=== PATIENT | female | born 1945 | race Caucasian/White ===

== ENCOUNTER 2016-09-18 09:24 | Inpatient (IN) | payer OTHER ==
[~2016-09-18] VITALS: Ht 162.6 cm; Wt 68.9 kg
[2016-09-18 09:25] VITALS: BP 230/87; PULSE 59; RESP 18; O2SAT 97
--- NOTE | 2016-09-18 09:25 | NUR ---
Placed in room 4 . Placed on rn cardiac, blood pressure machine and pulse oximeter. To gown for exam. Side rails up. Report given to NIKA NEWELL
--- NOTE | 2016-09-18 09:30 | NUR ---
ER at bedside examining patient.
--- NOTE | 2016-09-18 09:35 | NUR ---
Medication reconciliation completed with information provided by PT. Any prior medication reconciliation on file was reviewed and corrected.
--- NOTE | 2016-09-18 09:35 | NUR ---
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 right side facial sensory less than the left side. no drift. no acute distress noted. NIH score 1 completed by me.
--- NOTE | 2016-09-18 09:35 | NUR ---
Placed on air sampling and monitoring, blood pressure machine and pulse oximeter. To gown for exam. Side rails up.
[2016-09-18] MEDS ORDERED: FENO48TA2 PO (09:44)
[2016-09-18] MEDS ORDERED: GLU500 PO (09:44)
[2016-09-18] MEDS ORDERED: ATEN-166 PO (09:46)
[2016-09-18] MEDS ORDERED: LOSA1TAB36 PO (09:46)
[2016-09-18] MEDS ORDERED: PRO20 PO (09:46)
[2016-09-18] MEDS ORDERED: ASPI-859 PO (09:47)
--- NOTE | 2016-09-18 10:00 | NUR ---
# 20 gauge angiocath placed to LFA. Use of asceptic technique. Opsite placed over site. Blood return noted. Blood for lab drawn from site. Flushed with 10 cc of normal saline. No evidence of infiltration noted. Patient tolerated well.
[2016-09-18 10:17] LABS: ANION GAP 5 (5-15); CHLORIDE 106 mmol/L (98-107); CREATININE 0.79 mg/dL (0.55-1.30); GLUCOSE 104 mg/dL (70-99); POTASSIUM 3.8 mmol/L (3.5-5.1); SODIUM SERUM 137 mmol/L (136-145); UREA NITROGEN, BLOOD 22 mg/dL (8-21)
[2016-09-18 10:20] LABS: INR 1.1 (0.8-1.2); PROTHROMBIN TIME 11.5 SECS (9.5-12.5)
[2016-09-18 10:25] LABS: BASOPHILS % (AUTO) 0.4 % (0.0-2.0); EOSINOPHILS # (AUTO) 0.2 K/uL (0.0-0.4); EOSINOPHILS % (AUTO) 2.8 % (0.0-4.0); HEMATOCRIT 37.5 % (36-48); HEMOGLOBIN 12.5 g/dL (12.0-16.0); LYMPHOCYTES % (AUTO) 24.9 % (20.5-51.5); MEAN CORPUSCULAR HEMOGLOBIN 28 pg (27-31); MEAN CORPUSCULAR HGB CONC 33 % (32-36); MEAN CORPUSCULAR VOLUME 84 fL (79.0-98.0); MONOCYTES # (AUTO) 0.5 K/uL (0.0-1.0); MONOCYTES % (AUTO) 6.7 % (1.7-9.3); NEUTROPHILS # (AUTO) 5.3 K/uL (1.8-7.7); NEUTROPHILS % (AUTO) 65.2 % (40.0-70.0); PLATELET COUNT (AUTO) 374 K/uL (130-430); RED BLOOD CELL COUNT(AUTO) 4.45 MIL/uL (4.2-6.2); RED CELL DISTRIBUTION WIDTH 13.3 % (9.0-15.0)
[2016-09-18 10:34] LABS: ALANINE AMINOTRANSFERASE 17 U/L (12-78); ALBUMIN 3.9 g/dL (3.4-4.8); ASPARTATE AMINOTRANSFERASE 23 U/L (10-37); FREE T4 (FREE THYROXINE) 0.8 ng/dL (0.6-1.6); TOTAL BILIRUBIN 0.3 mg/dL (0.0-1.0); TOTAL PROTEIN, SERUM 7.4 g/dL (6.4-8.3)
[2016-09-18 10:35] LABS: ALCOHOL, BLOOD < 3 mg/dL (<10)
[2016-09-18] MEDS ORDERED: ASPIRIN 81 MG TAB.CHEW PO ONE (11:15)
--- NOTE | 2016-09-18 11:45 | NUR ---
Patient will be admitted to care of [facility]. Admitted to TELE unit. Will go to room 102 A . Belongings list completed. Summary report printed. Report will be given at bedside.
[2016-09-18] MEDS ORDERED: NON-FORMULARY MEDICATION (Losartan/Hctz* (Losartan-Hctz 100-12.5 Mg Tab*) 1 EACH) PO SCH (12:15)
[2016-09-18 12:17] VITALS: BP 191/77; PULSE 58; RESP 16; TEMP 96.9; O2SAT 94
--- NOTE | 2016-09-18 12:17 | NUR ---
Admission Note Received patient from ER with diagnosis of TIA, Uncontrolled HTN. Patient seen by Dr. Oquendo. Initial Plan of Care discussed-patient verbalized understanding. Patient's at bedside. Oriented to room, call light, pain management and safety.
[2016-09-18 12:35] VITALS: BP 191/77; PULSE 58; RESP 16; TEMP 96.9; O2SAT 94
--- NOTE | 2016-09-18 12:58 | NUR ---
RN ROUNDS PATIENT RECEIVED, AWAKE, ALERT AND ORIENTED X4, DENIES PAIN, EDUCATED PRODUCTION GENERALIST LIGHT SYSTEM AND TO CALL FOR ANY ASSISTANCE, PATIENT VERBALIZED UNDERSTANDING, ASSESSMENT COMPLETE, EDUCATED ON MEDICATIONS AND POTENTIAL SIDE EFFECTS, PATIENT VERBALIZED UNDERSTANDING AND TOLERATED WELL, NO OTHER NEEDS AT THIS TIME, BED IN LOWEST POSITION, THREE SIDE RAILS UP, BED ALARM ON, CALL LIGHT IN THE PATIENT'S HAND, FALL AND ASPIRATION PRECAUTIONS IN PLACE.
[2016-09-18] MEDS ORDERED: HYDROCHLOROTHIAZIDE 12.5 MG CAPSULE (HCTZ) PO ONE (13:00)
[2016-09-18] MEDS ORDERED: LOSARTAN POTASSIUM 50 MG TABLET (COZAAR) PO ONE (13:00)
--- NOTE | 2016-09-18 14:44 | NUR ---
RN ROUNDS PATIENT RESTING IN BED, EYES CLOSED, BREATHING IS EVEN AND UNLABORED, NO SIGNS OF DISTRESS, BED IN LOWEST POSITION, THREE SIDE RAILS UP, BED ALARM ON, FALL PRECAUTIONS IN PLACE, CALL LIGHT NEXT TO THE PATIENT'S HAND.
--- NOTE | 2016-09-18 15:36 | NUR ---
HEART RATE NOTIFIED BY [place] THAT PATIENT HEART RATE IS BETWEEN 47-50, PATIENT HAS EYES CLOSED, BREATHING IS EVEN AND UNLABORED, EASILY AROUSED, PATIENT STATES THAT SHE IS JUST TIRED, NO SIGNS OF DISTRESS, BED IN LOWEST POSITION, THREE SIDE RAILS UP, BED ALARM ON, CALL LIGHT NEXT TO THE PATIENT'S HAND, WILL CONTINUE TO MONITOR.
--- NOTE | 2016-09-18 16:19 | NUR ---
RN ROUNDS PATIENT RESTING IN BED, AWAKE, DENIES PAIN, NO DISTRESS, TALKING WITH FAMILY AT THE BEDSIDE, NO OTHER NEEDS AT THIS TIME, BED IN LOWEST POSITION, THREE SIDE RAILS UP, BED ALARM ON, CALL LIGHT IN THE PATIENT'S HAND, FALL PRECAUTIONS IN PLACE.
[2016-09-18 16:24] VITALS: BP 170/72; PULSE 72; RESP 16; TEMP 98.5; O2SAT 100
--- NOTE | 2016-09-18 16:24 | NUR ---
HIGH BLOOD PRESSURE VITAL SIGNS TAKEN, BLOOD PRESSURE 170/72 HEART RATE 72, PAGED DR WATERMAN FOR ORDERS, PATIENT HAS NO SIGNS OF DISTRESS AT THIS TIME, WILL CONTINUE TO MONITOR.
[2016-09-18] MEDS ORDERED: amLODIPine BESYLATE 5 MG TABLET PO ONE (16:45)
--- NOTE | 2016-09-18 16:47 | NUR ---
DR WATERMAN CALL BACK ORDERED FOR AMLODIPINE 2.5MG PO X1 NOW, WILL FOLLOW UP.
[2016-09-18] MEDS ORDERED: ACETAMINOPHEN 325 MG TABLET PO PRN (17:00)
[2016-09-18] MEDS ORDERED: ZOLPIDEM TARTRATE 5 MG TABLET PO PRN (17:00)
--- NOTE | 2016-09-18 17:01 | NUR ---
RN ROUNDS PATIENT RESTING IN BED, NO DISTRESS, EDUCATED THE PATIENT ON BLOOD PRESSURE MEDICATION AND POTENTIAL SIDE EFFECTS, PATIENT VERBALIZED UNDERSTANDING AND TOLERATED WELL, WILL REASSESS BLOOD PRESSURE, WILL CONTINUE TO MONITOR, BED IN LOWEST POSITION, TWO SIDE RAILS UP, BED ALARM ON, BED CLOSE TO NURSE'S STATION, CALL LIGHT IN THE PATIENT'S HAND, FALL PRECAUTIONS IN PLACE.
--- NOTE | 2016-09-18 17:06 | NUR ---
ATTEMPT TO CALL [facility]TR[facility] REGARDING ORDER FOR US CAROTID BILATERAL, NO ANSWER NO VOICEMAIL AVAILABLE, WILL ATTEMPT AGAIN.
[2016-09-18] MEDS ORDERED: FAMOTIDINE 20 MG TABLET PO ONE (17:15)
--- NOTE | 2016-09-18 17:16 | NUR ---
SPOKE WITH SO GARVIN HEAD TRACK COACH STATED THAT SHE IS AWARE OF THE ORDER AND THAT WANDA VANN WILL BE IN TO DO THE CAROTID BILATERAL US TODAY.
--- NOTE | 2016-09-18 17:27 | NUR ---
DR SEGURA HERE TO SEE THE PATIENT, WILL FOLLOW UP WITH ANY NEW ORDERS.
[2016-09-18] MEDS: metFORMIN HCL 500 MG TABLET PO SCH (17:41)
--- NOTE | 2016-09-18 17:44 | NUR ---
RN ROUNDS PATIENT RESTING IN BED, AWAKE, DENIES PAIN, EDUCATED THE PATIENT ON MEDICATIONS AND POTENTIAL SIDE EFFECTS, PATIENT VERBALIZED UNDERSTANDING AND TOLERATED WELL, NO OTHER NEEDS AT THIS TIME, BED IN LOWEST POSITION, TWO SIDE RAILS UP, BED ALARM ON, FALL PRECAUTIONS IN PLACE, FAMILY AT THE BEDSIDE, WILL CONTINUE TO MONITOR.
--- NOTE | 2016-09-18 18:18 | NUR ---
CLOSING NOTES PATIENT SITTING AT BEDSIDE EATING DINNER, DENIES PAIN, PATIENT WOULD LIKE BLOOD PRESSURE REASSESSED AFTER SHE EATS AND AFTER SHE HAS TIME TO RELAX, WILL FOLLOW UP OR ENDORSE TO [facility] SHIFT NURSE, ALL NEEDS MET, NO OTHER NEEDS AT THIS TIME, BED IN LOWEST POSITION, TWO SIDE RAILS UP, BED ALARM ON, FALL AND ASPIRATION PRECAUTIONS IN PLACE, CALL LIGHT NEXT TO THE PATIENT'S HAND, WILL ENDORSE REPORT TO NOC SHIFT NURSE.
--- NOTE | 2016-09-18 19:26 | NUR ---
Initial PM Note Pt was received lying in bed fully awake, alert and oriented x3. No c/o pain or discomfort at this time. Speech is clear and pt is able to make her needs known. Skin is warm and dry to touch. No signs or symptoms of hypoglycemia or hyperglycemia noted. monitor and storage bin tender is showing SR. Fall precautions are in place. Pt was instructed to call for assistance as needed and pt verbalized understanding. Call light is with pt and bed alarm is on. Three side rails are up. Bed is in the lowest and locked positions. Saline lock is intact in LFA without any signs of infiltration. Will continue to monitor pt.
[2016-09-18 19:47] LABS: BILIRUBIN,URINE NEGATIVE (NEGATIVE); BLOOD, URINE NEGATIVE (NEGATIVE); CLARITY/URINE CLEAR (CLEAR); COLOR,URINE YELLOW (YELLOW); GLUCOSE,URINE NEGATIVE (NEGATIVE); KETONES,URINE NEGATIVE (NEGATIVE); LEUKOCYTE ESTERASE ,URINE 2+ (NEGATIVE); NITRITE, URINE NEGATIVE (NEGATIVE); PH,URINE 6.5 (5.0-8.0); PROTEIN URINE NEGATIVE (NEGATIVE); UROBILINOGEN,URINE 0.2 (0.2-1.0)
[2016-09-18 20:00] VITALS: BP 143/65; PULSE 51; RESP 18; TEMP 97.8; O2SAT 96
[2016-09-18 20:16] LABS: BACTERIA,URINE FEW /HPF (None Seen); MUCUS,URINE 1+ /LPF (None Seen); RBC,URINE 0-3 /HPF (0-3)
[2016-09-18 20:18] LABS: BARBITURATE, URINE NEGATIVE (NEG <=200); BENZODIAZEPINE, URINE NEGATIVE (NEG <=150); CANNABINOID, URINE NEGATIVE (NEG <=50); COCAINE, URINE NEGATIVE (NEG <=150); METHAMPHETAMINES SCREEN,URINE NEGATIVE (NEG <=500); OPIATE, URINE NEGATIVE (NEG <=100); PHENCYCLIDINE SCREEN,URINE NEGATIVE (NEG <=25); UR TRICYCLIC ANTIDEPRESSANTS NEGATIVE (NEG <=300); URINE AMPHETAMINE NEGATIVE (NEG <=500); URINE METHADONE NEGATIVE (NEG <=200); URINE OXYCODONE SCREEN NEGATIVE (NEG <=100); URINE PROPOXYPHENE SCREEN NEGATIVE (NEG <=300)
--- NOTE | 2016-09-18 20:30 | NUR ---
Rounds Pt is awake and resting comfortably in bed, reading a magazine. No c/o pain or discomfort. Fall precautions are in place.
--- NOTE | 2016-09-18 22:00 | NUR ---
Rounds Pt is resting in bed without any acute distress noted. Fall precautions are in place.
[2016-09-18 23:36] VITALS: BP 133/61; PULSE 50; RESP 16; TEMP 98.2; O2SAT 98
--- NOTE | 2016-09-19 | NUR ---
Rounds Pt is sleeping without any respiratory distress noted. Fall precautions are in place.
--- NOTE | 2016-09-19 02:00 | NUR ---
Rounds Pt is sleeping without any distress noted. Call light is with pt and bed alarm is on.
[2016-09-19 04:00] VITALS: BP 154/66; PULSE 50; RESP 16; TEMP 98.2; O2SAT 92
--- NOTE | 2016-09-19 04:00 | NUR ---
Rounds Pt is sleeping comfortably in bed without any acute distress noted. Fall precautions are in place.
--- NOTE | 2016-09-19 05:30 | NUR ---
Rounds Pt is awake and resting quietly in bed. No c/o pain or discomfort.
--- NOTE | 2016-09-19 06:50 | NUR ---
Closing Note Pt is awake and resting comfortably in bed. No acute distress noted. All pt's needs were attended to. No fall or injury noted this shift. Will endorse to day shift nurse.
[2016-09-19 07:58] LABS: CHOLESTEROL 160 mg/dL (<200); HDL CHOLESTEROL 37 mg/dL (>55); LDL CHOLESTEROL 97 mg/dL (<100); TRIGLYCERIDES 135 mg/dL (30-150)
[2016-09-19 08:13] VITALS: BP 169/75; PULSE 59; RESP 14; TEMP 98.2; O2SAT 96
--- NOTE | 2016-09-19 08:14 | NUR ---
OPENING NOTE RECEIVED REPORT FROM OFF GOING PADDING GLUER NURSE. PATIENT RESTING COMFORTABLY, WITH NO NOTABLE SIGNS OF DISTRESS AT THIS TIME. PATIENT HAS NO COMPLAINTS OF PAIN AT THIS TIME. PATIENTS BED IN LOWEST POSITION, 2 SIDE RAILS UP, AND CALL LIGHT WITHIN REACH. WILL CONTINUE TO MONITOR FOR CHANGES IN STATUS.
[2016-09-19] MEDS ORDERED: HYDROCHLOROTHIAZIDE 12.5 MG CAPSULE (HCTZ) PO SCH (09:00)
[2016-09-19] MEDS: ATENOLOL 25 MG TABLET(TENORMIN) PO SCH (09:01)
[2016-09-19] MEDS: FLUoxetine HCL 20 MG CAPSULE (PROzac) PO SCH (09:02)
[2016-09-19] MEDS: ASPIRIN 81 MG TABLET(ECOTRIN) PO SCH (09:02)
[2016-09-19] MEDS: metFORMIN HCL 500 MG TABLET PO SCH ×2 (09:02→17:28)
[2016-09-19] MEDS: FAMOTIDINE 20 MG TABLET PO SCH (09:02)
[2016-09-19] MEDS: LOSARTAN POTASSIUM 50 MG TABLET (COZAAR) PO SCH (09:03)
--- NOTE | 2016-09-19 10:12 | NUR ---
NOTE SPOKE WITH PROCESS CONTROL BOARD OPERATOR, SHE STATED THAT THE RADIOLOGIST HAS A CRITICAL RESULT FROM PATIENTS MRI BRAIN. GIVEN THE EXTENSION TO HAVE DR. WATERMAN CALL: [phone]. PAGED DR. WATERMAN TO NOTIFY. WILL CONTINUE TO MONITOR PATIENT FOR CHANGES IN STATUS.
--- NOTE | 2016-09-19 10:12 | NUR ---
NOTE PAGED DR. SEGURA REGARDING RESULTS OF MRI. WILL GIVE EXTENSION TO CALL RADIOLOGIST REGARDING CRITICAL RESULT OF MRI BRAIN.
--- NOTE | 2016-09-19 10:16 | NUR ---
NOTE SPOKE WITH DR. SEGURA, GAVE EXTENSION OF RADIOLOGIST FOR TO DR. VICENTE REGARDING RESULTS. HE STATED HE WOULD CALL TO SPEAK WITH RADIOLOGIST.
[2016-09-19] MEDS: CIPROFLOXACIN HCL 500 MG TABLET PO SCH ×2 (10:21→21:08)
--- NOTE | 2016-09-19 10:33 | NUR ---
CALLED NEUROLOGIST DR Chilo SEGURA, RE: RESULT OF MRI OF THE BRAIN.
--- NOTE | 2016-09-19 11:19 | NUR ---
CALLED ATTENDING MD DR WATERMAN, RE: HIGH BP. SPOKE TO CRIST[place]
[2016-09-19] MEDS: ENALAPRILAT DIHYDRATE 1.25 MG/ML VIAL IVP PRN (11:44)
--- NOTE | 2016-09-19 12:39 | NUR ---
1200 NOTE PATIENT RESTING COMFORTABLY WITH FAMILY AT BEDSIDE. PATIENT HAS NO COMPLAINTS OF PAIN AT THIS TIME. PATIENTS BLOOD PRESSURE WAS 183/72, GIVEN VASOTEC, AND RECHECKED AFTER 15 MINUTES. FOLLOW UP B/P WAS 183/75. DR. WATERMAN WAS ON THE UNIT AND NOTIFIED. MEDICATION CHANGES TO FOLLOW. AMLODIPINE AND INCREASED HCTZ TO 25MG. WILL CONTINUE TO MONITOR FOR CHANGES IN STATUS. PATIENTS BED IN LOWEST POSITION, CALL LIGHT WITHIN REACH, AND SIDE RAILS ARE UP.
[2016-09-19] MEDS ORDERED: amLODIPine BESYLATE 5 MG TABLET PO ONE (12:45)
[2016-09-19] MEDS ORDERED: ATORVASTATIN 10 MG TABLET PO ONE (12:45)
[2016-09-19 12:58] VITALS: BP 190/80; PULSE 50; RESP 17; TEMP 96.8; O2SAT 95
[2016-09-19 13:52] LABS: ANION GAP 13 (5-15); CHLORIDE 107 mmol/L (98-107); CREATININE 0.67 mg/dL (0.55-1.30); GLUCOSE 89 mg/dL (70-99); SODIUM SERUM 138 mmol/L (136-145); UREA NITROGEN, BLOOD 21 mg/dL (8-21)
[2016-09-19 13:53] LABS: POTASSIUM 4.6 mmol/L (3.5-5.1)
--- NOTE | 2016-09-19 15:05 | NUR ---
1400 NOTE PATIENT RESTING COMFORTABLY, WITH NO NOTABLE SIGNS OF DISTRESS AT THIS TIME. PATIENT HAS NO COMPLAINTS OF PAIN AT THIS TIME. PATIENTS BED IN LOWEST POSITION, 2 SIDE RAILS UP, AND CALL LIGHT WITHIN REACH. WILL CONTINUE TO MONITOR FOR CHANGES IN STATUS.
[2016-09-19 16:47] VITALS: BP 138/76; PULSE 50; RESP 16; TEMP 98; O2SAT 98
--- NOTE | 2016-09-19 18:35 | NUR ---
[address] SEGURA, PATIENT IS CLEARED FROM A NEUROLOGY PERSPECTIVE. PLEASE DISCHARGE TO HOME WITH HOME HEALTH OR SNF. DR. WATERMAN WAS PAGED REGARDING DISCHARGE. PATIENTS BLOOD PRESSURE WAS ELEVATED WITH SBP >165. PATIENT IS ASYMPTOMATIC HYPERTENSIVE. PATIENT IS RESTING COMFORTABLY, NO COMPLAINTS OF PAIN. PATIENTS BED IS IN LOWEST POSITION, CALL LIGHT WITHIN REACH, AND SIDE RAILS UP. FAMILY IS AT BEDSIDE. WAITING TO GIVE REPORT TO MEDICAL DOCTOR MD/MEDICAL DIRECTOR NURSE. WILL CONTINUE TO MONITOR FOR CHANGES IN STATUS.
[2016-09-19 20:00] VITALS: BP 148/84; PULSE 55; RESP 18; TEMP 97.7; O2SAT 97
--- NOTE | 2016-09-19 20:00 | NUR ---
Initial Notes Received patient resting in bed, awake, alert, oriented, at bedside. Patient denies any acute distress or pain at this time. Vital signs stable. Breathing is even and unlabored on room air. IV site patent/clean/dry. Right sided weakness noted upper and lower extremity. Educated patient on use of call light for assistance and fall precautions, patient verbalized understanding. Call light in hand, will continue to monitor. Spoke with Dr. Oquendo on telephone regarding patient's discharge. Patient will not be discharged tonight. Patient made aware.
--- NOTE | 2016-09-19 22:00 | NUR ---
Rounds Patient resting in bed, awake. Patient denies any acute distress or pain at this time. Breathing is even and unlabored. Needs addressed. Call light in hand, will continue to monitor.
[2016-09-20] VITALS: BP 148/71; PULSE 62; RESP 18; TEMP 97; O2SAT 95
--- NOTE | 2016-09-20 | NUR ---
Rounds Patient resting in bed with eyes closed, easily aroused. Patient denies any distress or pain, breathing even and unlabored. Denies any needs. Call light in hand, will continue to monitor
--- NOTE | 2016-09-20 02:03 | NUR ---
Rounds Patient resting in bed with eyes closed. No acute distress noted, breathing even and unlabored. Call light in hand, fall precautions in place. Will continue to monitor.
[2016-09-20 04:10] VITALS: BP 139/60; PULSE 50; RESP 18; TEMP 96.8; O2SAT 95
--- NOTE | 2016-09-20 04:25 | NUR ---
Rounds Patient resting in bed with eyes closed. No acute distress noted, breathing is even and unlabored. Call light in hand, will continue to monitor.
--- NOTE | 2016-09-20 06:30 | NUR ---
Closing Notes Patient resting in bed with eyes closed, easily aroused. Patient denies any acute distress or pain at this time. Breathing is even and unlabored. IV site patent/clean/dry, no S/S infection/infiltration. Needs addressed throughout shift. Call light in hand, fall precautions in place. Will continue to monitor for changes and safety, and endorse all patient care/needs to oncoming nurse.
[2016-09-20] MEDS: ASPIRIN 81 MG TABLET(ECOTRIN) PO SCH (08:06)
[2016-09-20] MEDS: metFORMIN HCL 500 MG TABLET PO SCH ×2 (08:06→17:48)
[2016-09-20] MEDS: FAMOTIDINE 20 MG TABLET PO SCH (08:06)
[2016-09-20] MEDS: FLUoxetine HCL 20 MG CAPSULE (PROzac) PO SCH (08:06)
[2016-09-20] MEDS: ATENOLOL 25 MG TABLET(TENORMIN) PO SCH (08:07)
[2016-09-20] MEDS: LOSARTAN POTASSIUM 50 MG TABLET (COZAAR) PO SCH (08:08)
[2016-09-20] MEDS ORDERED: HYDROCHLOROTHIAZIDE 25 MG TABLET (HCTZ) PO SCH (09:00)
[2016-09-20] MEDS ORDERED: ATORVASTATIN 10 MG TABLET PO SCH (09:00)
[2016-09-20] MEDS ORDERED: amLODIPine BESYLATE 5 MG TABLET PO SCH (09:00)
[2016-09-20] MEDS: CIPROFLOXACIN HCL 500 MG TABLET PO SCH (10:17)
[2016-09-20 12:19] VITALS: BP 161/67; PULSE 52; RESP 17; TEMP 96.6; O2SAT 98
--- NOTE | 2016-09-20 12:35 | NUR ---
1200 NOTE PATIENT RESTING COMFORTABLY AT THIS TIME. PATIENT HAS NO NOTABLE SIGNS OF DISTRESS. PATIENTS BED IS IN LOWEST POSITION, CALL LIGHT WITHIN REACH, AND BED ALARM IS ON. WILL CONTINUE TO MONITOR FOR CHANGES IN STATUS.
--- NOTE | 2016-09-20 12:35 | NUR ---
OPENING NOTE RECEIVED REPORT FROM RETAIL ASSOCIATE NURSE. PATIENT RESTING COMFORTABLY AT THIS TIME. PATIENT HAS NO NOTABLE SIGNS OF DISTRESS. PATIENTS BED IS IN LOWEST POSITION, CALL LIGHT WITHIN REACH, AND BED ALARM IS ON. WILL CONTINUE TO MONITOR FOR CHANGES IN STATUS.
--- NOTE | 2016-09-20 14:10 | NUR ---
PHYSICAL THERAPY CO-SIGN The Physical Therapy Progress Notes documented by [place] have been reviewed. Reviewed/Co-Signed by: Radha Samayoa, PT Documentation Done by: Nithin Webster PTA I concur with the documentation of this NUMERICAL CONTROL DRILL PRESS OPERATOR. Plan: continue PT as per plan of care if she remains in this hospital. Addendum: 09/20/16 at 1454 by Radha Samayoa PT Amended: Links added.
--- NOTE | 2016-09-20 14:51 | NUR ---
DISCHARGE PLANNING DC order to arrange home health. Faxed order to [facility] Attn: Reinaldo Zhao [phone] requesting for auth to be forwarded to contracted [facility]. Faxed home health referral to [facility] [phone]. will follow up. Addendum: 09/20/16 at 1613 by Kellie Kyle DP spoke with Hu at [facility] patient accepted and home health nurse will call patient to make visit arrangements to see patient on Saturday 09/23. RN made aware.
--- NOTE | 2016-09-20 16:00 | NUR ---
1600 NOTE PATIENT RESTING COMFORTABLY AT THIS TIME. PATIENT HAS NO NOTABLE SIGNS OF DISTRESS. PATIENT AWAITING DISCHARGE. PATIENTS BED IS IN LOWEST POSITION, CALL LIGHT WITHIN REACH, AND BED ALARM IS ON. WILL CONTINUE TO MONITOR FOR CHANGES IN STATUS.
[2016-09-20 16:39] VITALS: BP 187/78; PULSE 55; RESP 16; TEMP 97.6; O2SAT 97
[2016-09-20] MEDS: ENALAPRILAT DIHYDRATE 1.25 MG/ML VIAL IVP PRN (17:51)
[2016-09-20 18:02] VITALS: BP 160/62; PULSE 55; RESP 18; TEMP 97.6; O2SAT 97
--- NOTE | 2016-09-20 18:48 | NUR ---
DISCHARGE PATIENT IS DISCHARGED, ALERT AND ORIENTED. IN STABLE CONDITION. EDUCATED PATIENT AND SPOUSE ON DISCHARGE INSTRUCTIONS. PATIENT VERBALIZED UNDERSTANDING. PATIENT IV DISCONTINUED, ARM BAND REMOVED. PATIENT AND SPOUSE TOOK ALL BELONGINGS, FISH CLEANER MACHINE TENDER WHEELED PATIENT TO FRONT LOBBY.
--- NOTE | 2016-09-24 14:34 | NUR ---
Discharge Follow Up Phone Call GEM EXPERT phoned patient, . Patient stated that she was doing well. There was no sign of slurred speech. She had a follow up appointment with her PCP, Dr Dotson, yesterday, September 23. [facility] to the home and PT will start tomorrow, 09/25/16. Patient stated she filled her prescriptions and is taking her medications as directed. Patient is using her blood glucose monitor and her sugars are staying stable. Patient has no questions or concerns and no further follow up calls are needed.
== END 2016-09-20 18:58 | disposition home health service (06) | DRG 65 ==
LOC: SED 09:24 → STU 11:24 → SMU 09-19 21:47
PROVIDERS: ADMIT Internal Medicine; ATTEND Internal Medicine
DX: I63.9 Cerebral infarction, unspecified (principal); N39.0 Urinary tract infection, site not specified; G81.91 Hemiplegia, unspecified affecting right dominant side; E11.9 Type 2 diabetes mellitus without complications; I10 Essential (primary) hypertension; F32.9 Major depressive disorder, single episode, unspecified; E78.5 Hyperlipidemia, unspecified; Z90.49 Acquired absence of other specified parts of digestive tract; Z90.710 Acquired absence of both cervix and uterus; Z79.899 Other long term (current) drug therapy
CPT/HCPCS: 36415; 70450-TC; 70551; 71010; 74000-TC; 80048; 80053; 80061; 80307; 81000-TC; 82140-TC; 83605; 83880; 84439; 84484; 85025; 85610-TC; 87040-TC; 87086; 93005; 93880; 97110-GP; 97116-GP; 97530-GP; 99285; G0482